=== PATIENT | male | born 1960 | race African-American/Black ===

== ENCOUNTER 2023-07-19 02:22 | Inpatient (IN) | payer OTHER ==
[~2023-07-19] VITALS: Ht 185.4 cm; Wt 108.8 kg
[2023-07-19] MEDS ORDERED: NALOXONE HCL 1 MG/ML 2 ML SYRINGE ONE (02:26)
[2023-07-19] MEDS ORDERED: 0.9% SODIUM CHLORIDE 10 ML SYRINGE IVP PRN (02:45)
[2023-07-19 02:46] LABS: BASOPHILS % (AUTO) 0.8 % (0.0-2.0); EOSINOPHILS % (AUTO) 0.3 % (1.0-6.0); HEMATOCRIT 44.8 % (41-53); HEMOGLOBIN 14.6 g/dL (13.5-17.5); LYMPHOCYTES # (AUTO) 5.9 K/uL (1.0-4.8); LYMPHOCYTES % (AUTO) 47.5 % (22.0-44.0); MEAN CORPUSCULAR HEMOGLOBIN 30.9 pg (26.0-34.0); MEAN CORPUSCULAR HGB CONC 32.6 G/dL (31.0-37.0); MEAN CORPUSCULAR VOLUME 95 fL (80-100); MONOCYTES # (AUTO) 0.9 K/uL (0.1-1.0); MONOCYTES % (AUTO) 7.3 % (2.0-9.0); NEUTROPHILS # (AUTO) 5.4 K/uL (1.8-7.7); NEUTROPHILS % (AUTO) 44.1 % (40.0-70.0); PLATELET COUNT (AUTO) 230 K/uL (150-450); RED BLOOD CELL COUNT(AUTO) 4.73 MIL/uL (4.50-5.90); RED CELL DISTRIBUTION WIDTH 14.9 % (11.5-14.5); WHITE BLOOD COUNT (AUTO) 12.4 K/uL (4.5-11.0)
[2023-07-19 02:48] LABS: ABG BASE EXCESS -5.7 mmol/L (-2.0-3.0); ABG HCO3 19.2 mmol/L (22.0-26.0); ABG METHEMOGLOBIN 0.4 % (0.0-1.5); ABG OXYGEN CONTENT 19.1 mL/dL (15.0-23.0); ABG OXYHEMOGLOBIN 88.5 % (94.0-100.0); ABG PCO2 56 mmHg (35-45); ABG PH 7.215 (7.35-7.450); ABG TOTAL HEMOGLOBIN 15.3 G/dL (12.0-18.0); PO2, ARTERIAL BG 95.9 mmHg (75.0-83.0); SOURCE, BLOOD GAS ARTERIAL; TEMPERATURE, FAHRENHEIT, BG 96.8 FAHREN (96.0-98.6)
[2023-07-19 02:50] LABS: ANION GAP 15 mmol/L (8-16); CALCIUM, TOTAL 8.5 mg/dL (8.8-10.5); CARBON DIOXIDE 24 mmol/L (22-29); CHLORIDE 102 mmol/L (98-107); CREATININE 0.96 mg/dL (0.60-1.30); GLOMERULAR FILTR. RATE CALC > 60 mL/min (>60); GLUCOSE,RANDOM 204 mg/dL (70-110); POTASSIUM 3.2 mmol/L (3.5-5.1); SODIUM SERUM 141 mmol/L (136-145); UREA NITROGEN, BLOOD 16 mg/dL (7-18)
[2023-07-19 02:52] LABS: INR 1.2 (0.9-1.1); PROTHROMBIN TIME 12.2 SEC (9.4-11.6)
[2023-07-19 02:54] LABS: COVID AG,FIA SOURCE NASAL SWAB
[2023-07-19 02:54] LABS: ABG A-A DIFF O2 155.5 mmHg (10-20.0); ABG CARBOXYHEMOGLOBIN 8.4 % (0.0-1.5); ALLEN TEST, BLOOD GAS Positive; O2 DEVICE,BLOOD GAS NASAL CANNULA (ROOM AIR); SITE, BLOOD GAS LFT RADIAL
[2023-07-19 02:58] LABS: TROPONIN I-HIGH SENSITIVITY 10 ng/L (<76)
[2023-07-19 02:58] LABS: PH,URINE DRUG SCREEN 6.5 (5.0-8.0)
[2023-07-19 02:59] LABS: ALANINE AMINOTRANSFERASE 80 U/L (12-78); ALBUMIN 3.5 g/dL (3.4-5.0); ALKALINE PHOSPHATASE 85 U/L (46-116); ASPARTATE AMINOTRANSFERASE 46 U/L (15-37); BILIRUBIN,TOTAL 0.5 mg/dL (0.1-1.0); CREATINE KINASE, TOTAL ONLY 467 U/L (39-308); TOTAL PROTEIN, SERUM 8.1 g/dL (6.4-8.2)
[2023-07-19 03:00] LABS: LACTIC ACID 4.8 mmol/L (0.4-2.0)
[2023-07-19 03:03] LABS: ALCOHOL, URINE DRUG SCREEN POSITIVE (NEGATIVE); AMPHET/METH SCREEN,URINE NEGATIVE (NEGATIVE); BARBITURATE SCREEN, URINE NEGATIVE (NEGATIVE); BENZODIAZEPINES SCREEN,URINE NEGATIVE (NEGATIVE); CANNABINOID SCREEN,URINE NEGATIVE (NEGATIVE); COCAINE SCREEN,URINE POSITIVE (NEGATIVE); METHADONE SCREEN, URINE NEGATIVE (NEGATIVE); OPIATE SCREEN,URINE NEGATIVE (NEGATIVE); PHENCYCLIDINE SCREEN,URINE NEGATIVE (NEGATIVE)
[2023-07-19 03:10] LABS: ACETAMINOPHEN < 2 mcg/mL (10-30); B-TYPE NATRIURETIC PEPTIDE 17 pg/mL (0-100)
[2023-07-19 03:12] LABS: SARS-COV2 (COVID) ANTIGEN,FIA Negative (Negative)
[2023-07-19 03:15] LABS: APPEARANCE,URINE CLEAR (CLEAR); BILIRUBIN,URINE NEGATIVE (NEGATIVE); COLOR,URINE YELLOW (YELLOW); GLUCOSE, URINE (UA) NEGATIVE (NEGATIVE); KETONES,URINE NEGATIVE (NEGATIVE); LEUKOCYTE ESTERASE ,URINE NEGATIVE (NEGATIVE); NITRATE,URINE NEGATIVE (NEGATIVE); OCCULT BLOOD,URINE SMALL (NEGATIVE); PH,URINE 6.5 (5.0-8.0); PROTEIN,URINE 100-200,SEE CONFIRM mg/dL (NEGATIVE); SPECIFIC GRAVITIY, URINE 1.018 (1.003-1.030); UROBILINOGEN,URINE <=1.0 mg/dL (<=1.0)
[2023-07-19 03:32] LABS: SULFOSALICYLIC ACID,URINE 1+ (Negative)
[2023-07-19 03:33] LABS: BACTERIA,URINE None Seen /HPF (None Seen); RBC,URINE 0-2 /HPF (0-2); SQUAMOUS EPITHELIAL CELL,UR None Seen /LPF (None Seen); WBC,URINE None Seen /HPF (0-5)
[2023-07-19] MEDS: PIPERACILLIN/TAZO 3.375 GM/D5W 50 ML IV ONE (03:38)
[2023-07-19] MEDS: SODIUM CHLORIDE 0.9% 2,000 ML IV ONE (03:39)
[2023-07-19] MEDS: SODIUM CHLORIDE 0.9% 1,000 ML IV ONE ×2 (04:32→06:54)
[2023-07-19] MEDS: POTASSIUM CHLORIDE 20 MEQ ER TABLET PO ONE (04:53)
[2023-07-19] MEDS ORDERED: POTASSIUM CHL 10 MEQ/WATER 50 ML IV PRN (06:00)
[2023-07-19] MEDS ORDERED: DEXTROSE 50%-WATER 25 GM/50 ML SYRINGE IVP PRN (06:00)
[2023-07-19] MEDS ORDERED: ACETAMINOPHEN 325 MG TABLET PO PRN (06:00)
[2023-07-19] MEDS ORDERED: MAGNESIUM HYDROXIDE SUSPENSION 30 ML UDCUP PO PRN (06:00)
[2023-07-19] MEDS ORDERED: INSULIN LISPRO 100 UNITS/ML SQ PRN (06:00)
[2023-07-19] MEDS: HEPARIN SODIUM,PORCINE 5,000 UNITS/ML VIAL SQ SCH (07:40)
[2023-07-19] MEDS: PIPERACILLIN/TAZO 3.375 GM/D5W 50 ML IV SCH (08:06)
[2023-07-19] MEDS: FAMOTIDINE 20 MG TABLET PO SCH (08:06)
[2023-07-19 14:46] VITALS: BP 133/88; PULSE 57; RESP 19; TEMP 98.1
[2023-07-19] MEDS ORDERED: SODIUM CHLORIDE 0.9% 250 ML IV ONE (18:32)
[2023-07-19 20:15] VITALS: BP 123/72; PULSE 55; RESP 18; TEMP 97.9
[2023-07-19 22:21] LABS: GLUCOMETER DEV NAME(LOC) 5S.1B; GLUCOSE,POINT OF CARE 98 MG/DL (70-110)
[2023-07-19 22:21] LABS: GLUCOMETER DEV NAME(LOC) 5S.1B; GLUCOSE,POINT OF CARE 103 MG/DL (70-110)
[2023-07-19 23:29] VITALS: BP 112/63; PULSE 53; RESP 18; TEMP 98.7
[2023-07-20 03:45] VITALS: BP 132/84; PULSE 57; RESP 18; TEMP 98.3
[2023-07-20 06:16] LABS: GLUCOMETER DEV NAME(LOC) 5S.2C; GLUCOSE,POINT OF CARE 78 MG/DL (70-110)
[2023-07-20 07:16] VITALS: BP 121/74; PULSE 53; RESP 18; TEMP 98
[2023-07-20 11:11] VITALS: BP 147/87; PULSE 66; RESP 18; TEMP 98.5
[2023-07-20 14:16] LABS: GLUCOMETER DEV NAME(LOC) 5S.1B; GLUCOSE,POINT OF CARE 75 MG/DL (70-110)
[2023-07-20 15:30] VITALS: BP 129/72; PULSE 66; RESP 18; TEMP 98.1
[2023-07-20 16:00] VITALS: BP 140/78; PULSE 62; RESP 18; TEMP 98.7
[2023-07-20 19:06] VITALS: BP 146/95; PULSE 68; RESP 19; TEMP 98.5
[2023-07-21 00:11] VITALS: BP 142/80; PULSE 56; RESP 18; TEMP 98.2
[2023-07-21 04:08] VITALS: BP 155/85; PULSE 61; RESP 18; TEMP 98.3
[2023-07-21 09:01] VITALS: BP 120/70; PULSE 73; RESP 20; TEMP 98.5
[2023-07-21 09:02] LABS: EOSINOPHILS % (AUTO) 1.6 % (1.0-6.0); HEMATOCRIT 41.4 % (41-53); HEMOGLOBIN 13.7 g/dL (13.5-17.5); LYMPHOCYTES # (AUTO) 2.1 K/uL (1.0-4.8); LYMPHOCYTES % (AUTO) 33.8 % (22.0-44.0); MEAN CORPUSCULAR HEMOGLOBIN 30.8 pg (26.0-34.0); MEAN CORPUSCULAR HGB CONC 33.2 G/dL (31.0-37.0); MEAN CORPUSCULAR VOLUME 93 fL (80-100); MONOCYTES # (AUTO) 0.4 K/uL (0.1-1.0); MONOCYTES % (AUTO) 6.5 % (2.0-9.0); NEUTROPHILS # (AUTO) 3.5 K/uL (1.8-7.7); NEUTROPHILS % (AUTO) 57.1 % (40.0-70.0); PLATELET COUNT (AUTO) 204 K/uL (150-450); RED BLOOD CELL COUNT(AUTO) 4.46 MIL/uL (4.50-5.90); RED CELL DISTRIBUTION WIDTH 14.4 % (11.5-14.5); WHITE BLOOD COUNT (AUTO) 6.2 K/uL (4.5-11.0)
[2023-07-21 09:11] LABS: ANION GAP 8 mmol/L (8-16); CALCIUM, TOTAL 8.7 mg/dL (8.8-10.5); CARBON DIOXIDE 28 mmol/L (22-29); CHLORIDE 106 mmol/L (98-107); CREATININE 0.92 mg/dL (0.60-1.30); GLOMERULAR FILTR. RATE CALC > 60 mL/min (>60); GLUCOSE,RANDOM 183 mg/dL (70-110); POTASSIUM 3.3 mmol/L (3.5-5.1); SODIUM SERUM 142 mmol/L (136-145); UREA NITROGEN, BLOOD 15 mg/dL (7-18)
[2023-07-21] MEDS: POTASSIUM CHLORIDE 20 MEQ ER TABLET PO PRN (10:29)
[2023-07-21] MEDS ORDERED: LEVO-72 PO (11:18)
[2023-07-21 11:42] VITALS: BP 132/83; PULSE 58; RESP 18; TEMP 98.1
[2023-07-21 17:21] LABS: GLUCOMETER DEV NAME(LOC) 5N.2C; GLUCOSE,POINT OF CARE 75 MG/DL (70-110)
[2023-07-21 20:05] LABS: GLUCOMETER DEV NAME(LOC) 5S.2C; GLUCOSE,POINT OF CARE 97 MG/DL (70-110)
== END 2023-07-21 12:25 | disposition home or self-care (01) | DRG 720 ==
LOC: EDBD 02:22 → EMS 02:22 → 5S 11:44
PROVIDERS: ADMIT Internal Medicine; ATTEND Internal Medicine
DX: A41.9 Sepsis, unspecified organism (principal); J69.0 Pneumonitis due to inhalation of food and vomit; G92.9 Unspecified toxic encephalopathy; R65.20 Severe sepsis without septic shock; M62.82 Rhabdomyolysis; E11.65 Type 2 diabetes mellitus with hyperglycemia; E87.6 Hypokalemia; Z20.822 Contact with and (suspected) exposure to COVID-19; F19.10 Other psychoactive substance abuse, uncomplicated; E66.9 Obesity, unspecified; T65.891A Toxic effect of other specified substances, accidental (unintentional), initial encounter; Z68.27 Body mass index [BMI] 27.0-27.9, adult; Y92.89 Other specified places as the place of occurrence of the external cause
CPT/HCPCS: 36600; 51702; 70450; 71045; 71250; 72192; 74150; 80048; 80053; 80307; 81001; 81002; 82140; 82550; 82805; 82962; 83605; 83880; 84132; 84145; 84484; 85025; 85610; 87040; 93005; 97166; 97535; 99291; G0378; G0480; G0481; J1644; J2310; J2543; J7030; J7050; 36415-L1; 36415-TC